=== PATIENT | female | born 1945 | race Caucasian/White ===

== ENCOUNTER 2022-03-03 12:21 | Inpatient (IN) ==
[2022-03-03] MEDS ORDERED: Ondansetron 4 MG/2 ML VIAL IVP PRN (13:33)
[2022-03-03] MEDS ORDERED: *HR* Dextrose 50 % in Water (Syg) 50 ML SYRINGE IVP PRN (13:35)
[2022-03-03] MEDS ORDERED: Dextrose Gel 15 GM/37.5 ML TUBE PO PRN ×2 (13:35)
[2022-03-03] MEDS ORDERED: D5% in Water 1,000 ML IVC PRN (13:35)
[2022-03-03] MEDS: Insulin LISPRO 300 UNITS/3 ML VIAL SUBQ SCH ×2 (17:18→20:32)
[2022-03-03] MEDS: Insulin DETEMIR 100 UNIT/ML X5UNITS SUBQ SCH (20:41)
[2022-03-03] MEDS: Gabapentin 300 MG CAPSULE PO SCH (20:42)
[2022-03-03] MEDS: Melatonin 3 MG TABLET PO PRN (20:42)
[2022-03-04] MEDS: Levothyroxine 25 MCG TABLET PO SCH (05:51)
[2022-03-04 07:47] LABS: Basophils % 0.7 %; Eosinophils # 0.2 K/mcL (0.0-0.6); Eosinophils % 2.8 %; Hematocrit 26.6 % (35.3-44.9); Hemoglobin 8.5 g/dL (11.5-15.4); Immature Granulocytes % 0.3 % (0-4); Lymphocytes # 1.3 K/mcL (0.6-4.6); Lymphocytes % 21.7 %; Mean Corpuscular Hemoglobin 26.2 pg (28.0-33.3); Mean Corpuscular Volume 81.8 fL (83.0-100.0); Mean Platelet Volume 9.6 fL (9.4-12.4); Monocytes # 0.8 K/mcL (0.0-1.3); Monocytes % 12.3 %; Neutrophils # 3.8 K/mcL (1.6-8.9); Platelet Count 336 K/mcL (140-400); Red Blood Count 3.25 M/mcL (3.82-4.97); Red Cell Distribution Width 14.4 % (11.5-14.5); Segmented Neutrophils % 62.2 %; White Blood Count 6.1 K/mcL (4.3-11.1)
[2022-03-04 08:17] LABS: Calcium 8.4 mg/dL (8.6-10.3); Potassium 3.9 mEq/L (3.5-5.1)
[2022-03-04] MEDS: Insulin LISPRO 300 UNITS/3 ML VIAL SUBQ SCH ×4 (08:50→22:10)
[2022-03-04] MEDS: Aspirin Enteric Coated 81 MG Tablet PO SCH (08:51)
[2022-03-04] MEDS: Metoprolol XL (24 HR) Succ 25 MG TAB.ER.24H PO SCH (08:52)
[2022-03-04] MEDS: Iron Polysaccharide Complex 150 MG CAPSULE PO SCH (08:52)
[2022-03-04] MEDS: hydroCHLOROthiazide 25 MG TABLET PO SCH (08:52)
[2022-03-04] MEDS: Gabapentin 300 MG CAPSULE PO SCH ×3 (08:52→22:18)
[2022-03-04] MEDS: Magnesium Oxide 400 MG TABLET PO SCH (08:52)
[2022-03-04] MEDS: lisinopriL 20 MG TABLET PO SCH (08:52)
[2022-03-04] MEDS: CRANBERRY PO SCH (14:17)
[2022-03-04 17:43] LABS: Bilirubin,Urine Negative (Negative); Blood,Urine Negative (Negative); Clarity,Urine Cloudy (Clear); Glucose,Urine (UA) 100 mg/dL (Normal); Ketones,Urine Trace mg/dL (Negative); Leukocyte Esterase,Urine Small (Negative); Nitrite,Urine Negative (Negative); Protein,Urine Trace mg/dL (Neg-Trace); Urobilinogen,Urine Normal (Normal)
[2022-03-04 17:49] LABS: Color,Urine Light Yellow (Yellow)
[2022-03-04 17:52] LABS: Bacteria,Urine Many per hpf (None-Few); RBC,Urine 0-3 per hpf (0-3); Squamous Epithelial Cell,Urine Few per hpf (None-Few)
[2022-03-04] MEDS: Melatonin 3 MG TABLET PO PRN (22:18)
[2022-03-04] MEDS: Insulin DETEMIR 100 UNIT/ML X5UNITS SUBQ SCH (22:19)
[2022-03-04] MEDS: *HR* Heparin 5,000 UNIT/ML VIAL SQ SCH (22:19)
[2022-03-04] MEDS: Cefdinir 300 MG CAPSULE PO SCH (22:19)
[2022-03-05] MEDS: *HR* Heparin 5,000 UNIT/ML VIAL SQ SCH ×3 (05:32→22:11)
[2022-03-05] MEDS: Levothyroxine 25 MCG TABLET PO SCH (05:32)
[2022-03-05 08:08] LABS: Basophils % 0.7 %; Eosinophils # 0.2 K/mcL (0.0-0.6); Eosinophils % 3.3 %; Hematocrit 28.1 % (35.3-44.9); Hemoglobin 8.9 g/dL (11.5-15.4); Immature Granulocytes % 0.2 % (0-4); Lymphocytes # 1.7 K/mcL (0.6-4.6); Lymphocytes % 30.7 %; Mean Corpuscular HGB Conc 31.7 g/dL (31.6-35.5); Mean Corpuscular Hemoglobin 25.6 pg (28.0-33.3); Mean Corpuscular Volume 80.7 fL (83.0-100.0); Mean Platelet Volume 9.7 fL (9.4-12.4); Monocytes # 0.6 K/mcL (0.0-1.3); Monocytes % 10.8 %; Platelet Count 354 K/mcL (140-400); Red Blood Count 3.48 M/mcL (3.82-4.97); Red Cell Distribution Width 14.5 % (11.5-14.5); Segmented Neutrophils % 54.3 %; White Blood Count 5.5 K/mcL (4.3-11.1)
[2022-03-05] MEDS: Metoprolol XL (24 HR) Succ 25 MG TAB.ER.24H PO SCH (08:21)
[2022-03-05] MEDS: lisinopriL 20 MG TABLET PO SCH (08:21)
[2022-03-05] MEDS: Magnesium Oxide 400 MG TABLET PO SCH (08:21)
[2022-03-05] MEDS: Iron Polysaccharide Complex 150 MG CAPSULE PO SCH (08:21)
[2022-03-05] MEDS: Cefdinir 300 MG CAPSULE PO SCH ×2 (08:21→22:11)
[2022-03-05] MEDS: Ondansetron ODT 4 MG TAB.RAPDIS SL PRN ×2 (08:21→22:11)
[2022-03-05] MEDS: hydroCHLOROthiazide 25 MG TABLET PO SCH (08:22)
[2022-03-05] MEDS: Insulin LISPRO 300 UNITS/3 ML VIAL SUBQ SCH ×4 (08:22→22:12)
[2022-03-05] MEDS: Gabapentin 300 MG CAPSULE PO SCH ×3 (08:22→22:12)
[2022-03-05] MEDS: Aspirin Enteric Coated 81 MG Tablet PO SCH (08:22)
[2022-03-05] MEDS: CRANBERRY PO SCH (08:23)
[2022-03-05 08:28] LABS: Calcium 8.7 mg/dL (8.6-10.3); Magnesium 1.3 mg/dL (1.6-2.6); Potassium 4.5 mEq/L (3.5-5.1)
[2022-03-05] MEDS: Insulin DETEMIR 100 UNIT/ML X5UNITS SUBQ SCH (22:12)
[2022-03-05] MEDS: Melatonin 3 MG TABLET PO PRN (22:16)
[2022-03-06] MEDS: Levothyroxine 25 MCG TABLET PO SCH (05:20)
[2022-03-06] MEDS: *HR* Heparin 5,000 UNIT/ML VIAL SQ SCH (05:20)
[2022-03-06 06:43] VITALS: BP 130/65; PULSE 59; RESP 14; TEMP 97.8; O2SAT 96
[2022-03-06] MEDS: Magnesium Oxide 400 MG TABLET PO SCH (08:40)
[2022-03-06] MEDS: Metoprolol XL (24 HR) Succ 25 MG TAB.ER.24H PO SCH (08:41)
[2022-03-06] MEDS: Aspirin Enteric Coated 81 MG Tablet PO SCH (08:41)
[2022-03-06] MEDS: Cefdinir 300 MG CAPSULE PO SCH (08:41)
[2022-03-06] MEDS: Iron Polysaccharide Complex 150 MG CAPSULE PO SCH (08:41)
[2022-03-06] MEDS: Gabapentin 300 MG CAPSULE PO SCH (08:41)
[2022-03-06] MEDS: lisinopriL 20 MG TABLET PO SCH (08:42)
[2022-03-06] MEDS: hydroCHLOROthiazide 25 MG TABLET PO SCH (08:42)
[2022-03-06] MEDS: CRANBERRY PO SCH (08:43)
[2022-03-06] MEDS: Insulin LISPRO 300 UNITS/3 ML VIAL SUBQ SCH ×2 (08:46→11:59)
[2022-03-06 09:06] LABS: Magnesium 1.4 mg/dL (1.6-2.6); Potassium 4.5 mEq/L (3.5-5.1)
[2022-03-06] MEDS ORDERED: Magnesium Oxide 400 MG TABLET PO SCH (09:15)
[2022-03-06] MEDS ORDERED: Insulin LISPRO 300 UNITS/3 ML VIAL SUBQ STA (11:39)
== END 2022-03-06 14:35 | disposition home health service (06) | DRG 638 ==
LOC: SUATTDRO 16:33 → INPPIK 16:33
PROVIDERS: ADMIT Internal Medicine; ATTEND Family Medicine